=== PATIENT | female | born 1950 | race Caucasian/White ===

== ENCOUNTER 2023-06-27 09:47 | Emergency (ER) | payer MEDICARE, OTHER, SELFPAY ==
[2023-06-27 09:52] VITALS: BP 182/104
[2023-06-27 10:10] LABS: % Basophils 0.4 % (0-2); % Eosinophils 0.8 % (0-6); % Immature Granulocytes 0.4 % (0-0.5); % Lymphocytes 24.1 % (20.5-51.1); % Monocytes 5.8 % (1.7-9.3); % Neutrophils 68.5 % (42.2-75.2); Absolute Eosinophils 0.1 10^3/uL (0-0.7); Absolute Lymphocytes 1.7 10^3/uL (1.2-3.4); Absolute Monocytes 0.4 10^3/uL (0.1-0.6); Absolute Neutrophils 4.8 10^3/uL (1.4-6.5); Hematocrit 37.5 % (37.0-47.0); Hemoglobin 12.9 g/dL (12.0-16.0); Mean Corp Hgb Conc. 34.4 g/dL (33.0-37.0); Mean Corpuscular Hgb 32.7 pg (27.0-31.0); Mean Corpuscular Volume 94.9 fL (81.0-99.0); Mean Platelet Volume 9.4 fL (7.4-10.4); Nucleated Red Blood Cells % 0 %; Platelet Count 211 10^3/uL (130-400); Red Blood Cell Count 3.95 10^6/uL (4.20-5.40); Red Cell Dist. Width 13.5 % (11.5-14.5); White Blood Cell Count 7.1 10^3/uL (4.8-10.8)
[2023-06-27 10:57] LABS: ALT (SGPT) 15 U/L (0-35); AST (SGOT) 24 U/L (14-36); Albumin 4.2 g/dl (3.5-5.0); Alkaline Phosphatase 81 U/L (38-126); Blood Urea Nitrogen 11 mg/dl (7-17); Calcium 9.4 mg/dl (8.4-10.2); Carbon Dioxide 25 mmol/L (22-30); Chloride 106 mmol/L (98-107); Glucose 99 mg/dl (70-99); Potassium 3.9 mmol/L (3.5-5.1); Sodium 136 mmol/L (135-145); Total Bilirubin 0.8 mg/dl (0.2-1.3); Total Protein 6.8 g/dl (6.3-8.2); eGFR > 60.00
--- NOTE | 2023-06-27 11:29 | EDRN ---
Ann Marie HOOKER in room w/ pt.
--- NOTE | 2023-06-27 11:33 | ED.GENMED ---
History of Present Illness
General
Chief Complaint: Eye Problems
Time Seen by Provider: 06/27/23 11:12
Travel History
Have you had any contact with someone who has COVID-19?: No
Do you have any symptoms of coronavirus? Fever > 100 degrees, chills, cough, shortness of breath, sore throat, loss of taste or smell, muscle aches, or headache?: No
History of Present Illness
History of Present Illness:
72-year-old female with history of hypertension presents to the emergency department for evaluation of bilateral eye redness and swelling. Initially developed left eye redness and discharge on Friday, saw her primary care physician and was
prescribed topical sulfacetamide drops. Began using eyedrops liberally and noticed worsening redness, the following day the right eye developed redness and swelling and began using eyedrops in both eyes. Has continued using these until late last
night and noticed progressive worsening of redness including some swelling to right side the maxillary cheek. Denies any blurry vision or photophobia. Does not wear contact lenses
Review of Systems
Review of Systems
Allergies reviewed?: Yes
All Other Systems: ROS reviewed and negative except as documented in HPI and ROS
Phy Exam
Physical Exam
Physical Exam:
GEN: Well appearing, NAD, WDWN
HEENT: Oral mucosa moist, no scleral icterus
Eyes: Pronounced conjunctival injection bilaterally, right worse than left. Few subconjunctival hemorrhages on the right. No hyphema or hypopyon bilaterally. Normal extraocular motion normal pupillary response without pain. No purulent
discharge. Mild infraorbital redness and swelling on the right
Cardiac: Regular rate
Lung: No respiratory distress, no tachypnea
MSK: No gross deformity or injuries
Skin: Good color, no pallor or jaundice, no rashes
Neuro: AO x3, moves all extremities freely
Psych: Calm, cooperative
Course
Orders/Labs/Results
Orders:
Orders
06/27/23 10:02
Complete Blood Count/With Diff Urgent
Comprehensive Metabolic Panel Urgent
06/27/23 12:39
Fluorescein Sodium [Ful-Remedios] 2 mg .ROUTE .STK-MED ONE
Purified Water Eye Wash [Dacriose Eye Wash Solution] 120 ml .ROUTE .STK-MED ONE
Tetracaine HCl [Tetracaine 0.5% Ophthalmic Solution] 1 drop .ROUTE .STK-MED ONE
Abnormal Lab Results
06/27/23
10:02
RBC 3.95 L 10^6/uL
(4.20-5.40)
MCH 32.7 H pg
(27.0-31.0)
06/27/23 10:02
06/27/23 10:02
Vital Signs
Initial and Last Documented VS:
Initial Vital Signs
Temp Pulse Resp BP Pulse Ox
98.3 F 77 18 182/104 97
06/27/23 09:52 06/27/23 09:52 06/27/23 09:52 06/27/23 09:52 06/27/23 09:52
Last Documented Vital Signs
Temp Pulse Resp BP Pulse Ox
98.3 F 65 16 145/76 96
06/27/23 09:52 06/27/23 12:14 06/27/23 12:14 06/27/23 12:14 06/27/23 12:14
MDM/Problems Addressed
MDM/Problems Addressed:
Suspect patient developed a viral conjunctivitis that was compounded by a local reaction to the sulfacetamide drops. She has no evidence of fluorescein uptake on exam, interestingly left eye visual acuity is 20/100 but her eyes do correct when
assessed together. Her right eye appears clinically worse with more hemorrhages conjunctival injection. She has no photophobia or pain with extraocular motion that would suggest retro-orbital process. Labs are reassuring. Will start topical
antibiotics with erythromycin, discontinue sulfacetamide, trial a course of prednisone due to the topical skin reaction adjacent to the right eye. ED return parameters discussed
*Critical Care Note
Total Time (30-74mins, 75-104mins- exclusive of procedures): Not Applicable
ED Attending Note
-
Portions of this chart may have been created with voice recognition software.� Occasional wrong word or��sound alike� substitutions may have occurred due to the inherent limitations of voice recognition software.
Discharge Plan
Departure
Patient Disposition: Home (Routine Discharge)
Date of Disposition: 06/27/23
Time of Disposition: 12:13
Patient with high blood pressure during this ER visit?: Yes
Discharge Problem:
Acute viral conjunctivitis of both eyes, Sulfacetamide adverse reaction
Instructions: Conjunctivitis (Pinkeye) (DC)
Prescriptions:
New
erythromycin 5 mg/gram (0.5 %) ointment
0.5 inch ophthalmic (eye) QID 5 Days Qty: 7 0RF
methylprednisolone [Medrol (Fer)] 4 mg tablets,dose pack
See Rx Instructions .ROUTE .COMPLEX Qty: 21 0RF
Rx Instructions:
orally per package directions
Referrals:
Florian Lou MD [Family Provider] -
Activity Restrictions/Additional Instructions:
Stop the sulfacetamide drops
Return if symptoms worsen
Interventions
Interventions:
*Risk Screen - Suicide Last Done: 06/27/23 09:52
*General Assessment Last Done: 06/27/23 09:52
*Neglect/Abuse Screening Last Done: 06/27/23 09:52
ED- Fall Risk Assessment Last Done: 06/27/23 12:26
*ED COVID-19 Vaccine History Last Done: 06/27/23 12:26
*Nursing Disposition Last Done: 06/27/23 12:26
Discharge Date and Time
Discharge Date/Time: 06/27/23 12:26
Print Language: CONGOLESE
[2023-06-27 11:41] VITALS: BMI 35.5
[2023-06-27 11:44] VITALS: BP 150/78
[2023-06-27 12:14] VITALS: BP 145/76
== END 2023-06-27 12:26 | disposition home or self-care (01) ==
LOC: EMR 09:47
PROVIDERS: Emergency Medicine; EMERGENCY PHYSICIAN Emergency Medicine; FAMILY PHYSICIAN Family Medicine
DX: B30.9 Viral conjunctivitis, unspecified (principal); T49.5X5A Adverse effect of ophthalmological drugs and preparations, initial encounter; I10 Essential (primary) hypertension
CPT/HCPCS: 99283; 80053; 85025

== ENCOUNTER → 2024-06-22 10:05 | Outpatient (REF) | payer MEDICARE, OTHER, SELFPAY | LOC: EMG 10:05 | PROVIDERS: ATTENDING PHYSICIAN Podiatrist Foot & Ankle Surgery; FAMILY PHYSICIAN Family Medicine | DX: R20.2 Paresthesia of skin (principal); G63 Polyneuropathy in diseases classified elsewhere; R20.0 Anesthesia of skin | CPT/HCPCS: 95886; 95911 ==

== ENCOUNTER → 2024-08-09 08:41 | Outpatient (REF) | payer MEDICARE, OTHER, SELFPAY | LOC: WDC 08:41 | PROVIDERS: ATTENDING PHYSICIAN Family Medicine | DX: Z12.31 Encounter for screening mammogram for malignant neoplasm of breast (principal) | CPT/HCPCS: 77063; 77067 ==

== ENCOUNTER → 2024-12-07 08:56 | Outpatient (REF) | payer MEDICARE, OTHER, SELFPAY | LOC: HWRAD 08:56 | PROVIDERS: ATTENDING PHYSICIAN Family Medicine | DX: F33.0 Major depressive disorder, recurrent, mild (principal); Z82.49 Family history of ischemic heart disease and other diseases of the circulatory system | CPT/HCPCS: 75571 ==